=== PATIENT | male | born 1970 | race Caucasian/White ===

== ENCOUNTER → 2019-08-31 15:16 | Outpatient (CLI) | payer BC, SELFPAY ==
--- NOTE | ~2019-08-31 | XR_ITS ---
XR foot RT 2V DATE: 08/31/2019 15:36 INDICATION: Right foot pain TECHNIQUE: AP and lateral views COMPARISON: None FINDINGS: There is moderate osteoarthritis at the first metatarsophalangeal joint. There is plantar calcaneal and minimal posterior calcaneal enthesopathy. No fracture or dislocation, periosteal reaction or bone destruction. IMPRESSION: Osteoarthritis at first metatarsophalangeal joint Calcaneal enthesopathy Reviewed, dictated and finalized at location B. RANCE INSTRUCTOR
== END ==
PROVIDERS: PCP Family Medicine; Visit Provider Physician Assistant
DX: M79.671 Pain in right foot (principal); M19.071 Primary osteoarthritis, right ankle and foot; M77.9 Enthesopathy, unspecified
CPT/HCPCS: 73620

== ENCOUNTER 2019-09-14 11:18 | Outpatient (CLI) | payer BC, SELFPAY ==
[2019-09-14 11:55] LABS: CRP 0.8 mg/dL (<1.0); Uric Acid 7.7 mg/dL (3.5-8.5)
[2019-09-14 12:01] LABS: Rheumatoid Factor < 8.6 IU/ML (<12)
[2019-09-14 12:51] LABS: Erythrocyte Sedimentation Rate 27 mm/hr (0-20)
[2019-09-16 12:49] LABS: HLA B27 Positive (Negative)
[2019-09-16 21:17] LABS: Anti Nuclear Antibody Pattern Nuclear, Speckled; Anti Nuclear Antibody Titer 1:40 (Negative)
== END 2019-09-14 11:19 | disposition home or self-care (01) ==
PROVIDERS: PCP Family Medicine; Visit Provider Podiatrist Foot & Ankle Surgery
DX: M10.9 Gout, unspecified (principal)
CPT/HCPCS: 36415; 84550; 85652; 86038; 86039; 86140; 86430; 86812

== ENCOUNTER 2019-09-23 06:43 | Outpatient (CLI) | payer BC, SELFPAY ==
--- NOTE | ~2019-09-23 | MR_ITS ---
EXAMINATION: MR ankle RT wo con DATE: 09/23/2019 07:37 INDICATION: Insertional calcific tendinitis of right Achilles tendon. TECHNIQUE: Magnetic resonance imaging (MRI) of the right ankle was performed without intravenous cont rast. Sequences included sagittal PD-weighted FS FSE, sagittal PD-weighted FSE, coronal PD-weighted F S FSE, coronal PD-weighted FSE, axial PD-weighted FS FSE, and axial PD-weighted FSE. COMPARISON: Right foot radiographs 08/31/2019 FINDINGS: Medial ankle ligaments: There are changes of prior sprain of superficial component of the deltoid ligament characterized by t hickening and increased signal intensity. The deep component of the deltoid ligament is normal. Lateral ankle ligaments: There are changes of prior sprains of anterior talofibular ligament, calcaneofibular ligament, and an terior tibiofibular ligament characterized by thickening and increased signal intensity. Posterior ta lofibular ligament and posterior tibiofibular ligaments are normal. Tendons: The peroneal tendons and anterior and medial ankle tendons are normal. There is a partial tear of Ach illes tendon at its distal attachment where there is bone marrow edema and overlying subcutaneous tomas ma. There is a small enthesophyte at the calcaneal attachment. Plantar fascia: There is thickening of central band of plantar fascia, consistent with fasciitis. There is an entheso phyte at the calcaneal attachment. Bones/other: Bone alignment is normal. No fracture. There are tiny osteophytes at talonavicular joint. Talar dome is normal. Fluid: There is no joint effusion. IMPRESSION: 1. Partial tear of Achilles tendon at its distal attachment. 2. Plantar fasciitis. Reviewed, dictated and finalized at location A. AT CONTROL
== END 2019-09-23 06:44 | disposition home or self-care (01) ==
PROVIDERS: PCP Family Medicine; Visit Provider Podiatrist Foot & Ankle Surgery
DX: M76.61 Achilles tendinitis, right leg (principal); M72.2 Plantar fascial fibromatosis
CPT/HCPCS: 73721

== ENCOUNTER → 2021-10-19 06:56 | Outpatient (CLI) | payer BC, SELFPAY ==
--- NOTE | ~2021-10-19 | MR_ITS ---
EXAMINATION: MR ankle LT wo con DATE: 10/19/2021 07:29 INDICATION: Achilles tendinitis with left ankle pain TECHNIQUE: Magnetic resonance imaging (MRI) of the left ankle was performed without intravenous contr ast. Sequences included sagittal, coronal, and axial proton-density weighted fast spin echo without a nd with fat saturation. COMPARISON: None. FINDINGS: Medial ankle ligaments: Deep and superficial deltoid ligaments as well as the spring ligament are normal. Lateral ankle ligaments: The anterior and posterior inferior tibiofibular ligaments are normal. The anterior talofibular, calc aneofibular and posterior talofibular ligaments are normal. Tendons: Focal Achilles tendinopathy with thickening and increased signal along the lateral side of the diet counselor ior margin of the distalmost Achilles tendon. Associated Achilles bursitis with increased fluid signa l within the bursa immediately overlying the region of tendinopathy. The peroneus longus and brevis t endons are normal. The tibialis anterior and extensor hallucis longus and extensor digitorum longus t endons are normal. The tibialis posterior, flexor digitorum longus and flexor hallucis longus tendons are normal. Plantar fascia: Small plantar calcaneal spur at the origin of the otherwise normal plantar aponeurosis. Bones/other: Bone alignment is normal. No fracture or pathologic marrow replacing process. There is an erosion at the medial margin of the talar dome along the anterior footplate of the deep deltoid ligament. No oth er erosions identified. Mild osteoarthritis at the tibiotalar and talonavicular joints. Fluid: Physiologic amount fluid in the joint spaces. Mild subcutaneous edema overlying the medial malleolus and to lesser degree overlying the lateral malleolus and Achilles tendon. IMPRESSION: 1. Erosion at the medial talus underlying the footplate of the deep deltoid ligament which may be rel ated to provided history of gout. 2. Mild Achilles bursitis overlying a focal region of prominent tendinopathy. The relatively localize d regions tendinopathy suggests this could also be related to tophaceous gout. Reviewed, dictated and finalized at location A. IMPRESSION: 1. Erosion at the medial talus underlying the footplate of the deep deltoid lig ament which may be related to provided history of gout. 2. Mild Achilles bursitis overlying a focal region of prominent tendinopathy. T he relatively localized regions tendinopathy suggests this could also be relate d to tophaceous gout.
== END ==
PROVIDERS: Visit Provider Podiatrist Foot & Ankle Surgery
DX: M76.62 Achilles tendinitis, left leg (principal)
CPT/HCPCS: 73721

== ENCOUNTER 2021-11-26 02:13 | Day surgery (SDC) | payer BC, SELFPAY ==
[2021-11-16 09:12] VITALS: BMI 45.1
--- NOTE | 2021-11-16 09:19 | PC.NURSE ---
Report to the Outpatient Waiting Room, entrance under the green pavilion located off [facility], at time 0600 on date 11/26/21. OR Time: 0730. - You and your visitor will be asked a series of questions to screen for COVID 19 for your protection. - A mask is required within the hospital. One visitor will be allowed to accompany the patient into the hospital. Patients visitor will be instructed to remain with patient at all times or leave the building. We will allow the visitor to come back to the postoperative area when patient is ready. Preoperative COVID Testing Requirements: COVID TEST 11/23 AT 0830 No COVID Test needed if: (proof is required; if not received patient will have Rapid Test prior to entry) - Patient has received COVID Vaccine at least 14 days prior to procedure date or - Patient has positive COVID test result within last 90 days of surgery date. COVID Test needed if above criteria is not met If not COVID vaccinated a COVID test must be conducted within 72 hours of surgery and patient is asked to isolate self from time of testing until procedure. You will go to the [facility] for your COVID testing. The [facility] site is located at the corner of [address] from [facility]. You will only be called if COVID results are positive and your surgeon may reschedule your elective surgery date. Patients may have clear liquids (water, carbonated beverages, clear teas, apple juice) until 3 hours prior to surgery with a maximum of 20 ounces. - No food from midnight until time of surgery Take the following medications with a SIP of water the morning of surgery: NONE Medications to discontinue per physician: N/A Date to take last dose: N/A Please no make-up, nail pashto, hairspray, perfume, deodorant, or body powder the day of surgery. No jewelry (including any body piercings) or valuables the day of surgery, leave them at home. Please take a shower or bath the night before, or the morning of, surgery with an antibacterial soap. Wear comfortable, loose fitting clothing. - Jewelry must be removed prior to entering the operating room. Rings and piercings that are not removed may be cut off. - The hospital will not accept responsibility for valuables. - Please leave all valuables, including medications, at home the day of surgery. If you are going home after surgery, a licensed armored car driver must drive you home. - NO public transportation without another adult. - We recommend that an adult stay with you for 24 hours following discharge. - We also recommend that you do not drive, make important decision, drink alcoholic beverages, or take any drugs that were not prescribed by your health care provider for at least 24 hours after your discharge time. Follow any additional instructions given to you from your surgeon. Telephone instructions given to JUDY CHA and asked if any additional questions and then verbalized understanding. Patient advised to call surgeon office or pre surgery nurse liaison [phone] if any additional questions.
--- NOTE | 2021-11-26 06:49 | WPDANESEPPF ---
Anes - Initial Pre Proc Eval Procedure: Operation Date: 11/26/21 07:30 Proposed Procedures p Excision of Right Groin Chronic Abscess Cavity - Maribeth Brumfield MD Date/Time: 11/26/21 06:49 Surgeon: Maribeth Brumfield MD Pre Op Diagnosis: rt groin groin folliculitis Patient Data Age: 51 Gender: M Height: 1.68 m Weight: 134 kg Allergies Allergy/AdvReac Type Severity Reaction Status Date / Time No Known Allergies Allergy Verified 11/26/21 06:11 Home Medications Medication Instructions Recorded Confirmed Type No Home Medications 11/16/21 11/26/21 History Patient hx anesthesia problems: none Family hx anesthesia problems: none Results Review: All pre-operative results and documents have been reviewed as part of the pre-operative evaluation. [facility] Past Medical History Medical History Cough H/O: gout Intertrigo Pain of right heel Rib pain Social History Social History Smoking packs per day: 0.25 Smoking cigarettes per day: 5.0 Years smoked: 4 Smoking pack-years: 1.00 Smoking status: Former smoker Tobacco type: cigarettes Second hand tobacco smoke exposure: No Smoking end date: 07/28/96 Alcohol intake: current Drinks per week: 1 Substance use: never Substance use type: does not use Living arrangements: with family Gender identity (if verbalized by the patient): Male Sexual Orientation (if Verbalized by the Patient): Straight or Heterosexual Spiritual care concerns: No Anes - Eval Final PreProcedure Day of Procedure 11/26/21 06:49 Patient weight: morbidly obese Heart: regular rate and rhythm Lungs: clear to auscultation Airway: Mallampati scale class II Neurological: alert and oriented Last oral intake: >/= 8 hours ASA classification: III Emergent: no Anesthetic plan: proceed Anesthesia type and monitoring: general GIVS and standard monitoring Results Review: All pre-operative results and documents have been reviewed as part of the pre-operative evaluation. Informed Consent: The patient's anesthetic plan and its attendant risks and benefits were discussed with the patient/family/POA. Questions were solicited and answers provided to the satisfaction of the patient/family/POA.
[2021-11-26] MEDS: LACTATED RINGERS 1,000 ML 30 ML IV CONT (07:01)
[2021-11-26 07:05] VITALS: BP 153/87; PULSE 75; RESP 18; TEMP 35.9; O2SAT 99
[2021-11-26] MEDS: ceFAZolin 3 GM/D5W 100 ML 100 ML IVPB (07:14)
--- NOTE | 2021-11-26 07:15 | WPDHPUPDATE1 ---
History and Physical Update Update Date/Time: 11/26/21 07:15 History and Physical has been reviewed, including an updated exam of the patient. There are NO changes in the patient's condition. Risks, benefits, and alternatives have been discussed and questions answered. Patient agrees to proceed with procedure.
[2021-11-26 07:48] VITALS: BP 92/49; PULSE 76; RESP 15; O2SAT 92
--- NOTE | 2021-11-26 08:11 | W.PM.PROC2 ---
Procedure Note - Detailed Date of Procedure 11/26/21 Pre-op Diagnosis rt groin groin chronic abscess Post-op Diagnosis Same Procedure Performed Excisional biopsy right groin chronic abscess cavity Surgeon Maribeth Brumfield MD Anesthesia MAC and Local Indications 51-year-old male with chronic right groin abscess over the last year. The area continually heals and gets reinfected. Findings Chronic abscess with cavity Description of Procedure The patient was taken to the operating room and placed in the supine position. After adequate induction of mac anesthesia, the patient was prepped and draped in the normal sterile fashion. A time-out was then done to verify the patient's identity, as well as the procedure being performed. I then made an elliptical incision encompassing the abscess in the right groin. This was carried down through the dermis and into the subcutaneous tissue. A granulated cavity was noted to connect to the overlying skin. This area was completely excised and will be sent to pathology for further. Of note, no obvious infection was noted at this time. No other pathology was noted in this area. I then copiously irrigated the subcutaneous tissue. The subcutaneous tissue was closed with 3-0 Vicryl suture. The skin was closed with 4-0 Monocryl subcuticular suture. Dermabond was then placed on the wound. The patient tolerated the procedure and will be sent to the recovery room in stable condition. Estimated Blood Loss 5 Drains No Packing No Pathology Yes Complications No immediate complications Condition Stable Disposition PACU
[2021-11-26 08:18] VITALS: BP 134/66; PULSE 74
[2021-11-26 08:30] VITALS: BP 136/79; PULSE 63
== END 2021-11-26 08:42 | disposition home or self-care (01) ==
PROVIDERS: PCP Family Medicine; Visit Provider Surgery
PROC: (CPT 11406; principal; 2021-11-26 07:30)
DX: L02.214 Cutaneous abscess of groin (principal); L73.9 Follicular disorder, unspecified; G47.33 Obstructive sleep apnea (adult) (pediatric); Z87.891 Personal history of nicotine dependence; E66.01 Morbid (severe) obesity due to excess calories; Z68.42 Body mass index [BMI] 45.0-49.9, adult
CPT/HCPCS: 11406; 12032; 88304; A9270; J0690; J2250; J2270; J2704; J7120

== ENCOUNTER 2024-05-19 18:00 | Emergency (ER) | payer BC, SELFPAY ==
[2024-05-19 18:00] VITALS: BP 154/111; PULSE 81; RESP 20; TEMP 36.8; O2SAT 97
--- NOTE | 2024-05-19 18:16 | ED.WOUNDLAC ---
HPI - Wound/Laceration General Chief Complaint: Wound/Laceration Stated Complaint: RT Arm Time Seen by Provider: 05/19/24 18:16 Source: patient and RN notes reviewed Mode of arrival: ambulatory Limitations: no limitations History of Present Illness HPI narrative: 53 year old male presents with concern for lateration to his right upper arm. 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 he is up to date on his tetanus vaccination. Related Data Allergies Allergy/AdvReac Type Severity Reaction Status Date / Time No Known Allergies Allergy Verified 05/19/24 18:15 Review of Systems Review of Systems: CONSTITUTIONAL: Denies malaise, chills, sweats, or fever. SKIN: Reports laceration to the right upper arm MUSCULOSKELETAL: Denies muscle skeletal pain NEUROLOGIC: Denies numbness, weakness All systems reviewed & are unremarkable except as noted in HPI and below PMFSH Past Medical History Medical History Cough H/O: gout Intertrigo Pain of right heel Rib pain Surgical History Surgical History H/O excision of mass exc right groin chronic abscess cavity 11/26/21 Social History Social History Smoking packs per day: 0.25 Smoking cigarettes per day: 5.0 Years smoked: 4 Smoking pack-years: 1.00 Smoking status: Former smoker Tobacco type: cigarettes Second hand tobacco smoke exposure: No Smoking end date: 07/28/96 Alcohol intake: current Drinks per week: 1 Substance use: never Substance use type: does not use Living arrangements: with family Occupation/Education: occupation Gender identity (if verbalized by the patient): Male Sexual Orientation (if Verbalized by the Patient): Straight or Heterosexual Spiritual care concerns: No Comments At time of signature, agree with nursing past medical, surgical, social and family history. There is no relevant family history pertinent to the presenting complaint Exam Narrative: GENERAL: Well-appearing, well-nourished, and in no acute distress. HEAD: Normocephalic, atraumatic. EYES: PERRLA, conjunctivae clear ENT: Mucous membranes moist. NECK: Supple. No lymphadenopathy CHEST: Clear to auscultation. No respiratory distress. HEART: Regular rate and rhythm. SKIN: Warm, dry. 4cm linear laceration through the dermis, not involving subq tissue noted to the right upper arm NEURO: Alert and oriented x3. PSYCH: Normal mood and affect Course Course Emergency Course: Patient is aware of diagnosis, understands and agrees to treatment plan. Anticipatory guidance given. Patient agrees to follow-up as directed and is aware of reasons to seek care at the emergency department. Portions of this record may have been created with voice recognition software Level of Care: Express Care Visit Vital Signs Vital signs: Reviewed. Procedures Laceration Laceration 1: Date: 05/19/24 Time: 18:43 Site: upper extremity Side (If applicable): right Size (cm): 4 Description: linear Depth: simple, single layer Pre-repair: wound explored and irrigated extensively ====== Skin Level ====== Skin layer closed with: dermabond and steri strips ====== Subcutaneous Layer ====== ====== Muscle Layer ====== ====== Tendon Layer ====== MDM - Wound/Laceration MDM Narrative Medical decision making narrative: Wound explored for foreign body and copious irrigation provided with no evidence of FB. Discussed the potential of retained foreign body with the patient and signs/symptoms that should prompt the patient to immediately go to the ED for reevaluation. There was no evidence of tendon or nerve lacerations. Anticipatory guidance was provided. Tetanus prophylaxis was given Differential Diagnosis Differen
[2024-05-19] MEDS: TETANUS,DIPHTHERIA,AC PERTUSSIS ADULT (0.5 ML) BOOSTRIX IM (18:52)
== END 2024-05-19 18:54 | disposition home or self-care (01) ==
PROVIDERS: Emergency Provider Nurse Practitioner; PCP Family Medicine
DX: S41.111A Laceration without foreign body of right upper arm, initial encounter (principal); Z23 Encounter for immunization; W45.8XXA Other foreign body or object entering through skin, initial encounter
CPT/HCPCS: 12002; 90471; 90715; 99212; G0463

== ENCOUNTER 2024-05-25 01:17 | Emergency (ER) | payer BC, SELFPAY ==
--- NOTE | ~2024-05-25 | XR_ITS ---
Left ankle Technique: AP, oblique, and lateral views were obtained. Clinical History: Pain Findings: No acute fracture or dislocation is seen. Osseous alignment is anatomic. Ankle mortise and other visualized joint spaces are preserved. Mild diffuse soft tissue edema noted. Impression: No fracture or dislocation. Mild diffuse soft tissue edema. Reviewed, dictated and finalized at [facility]. Impression: No fracture or dislocation. Mild diffuse soft tissue edema.
[2024-05-25 01:24] VITALS: BP 145/78; PULSE 105; RESP 18; TEMP 36.2; O2SAT 97
--- NOTE | 2024-05-25 05:02 | ED_ITS ---
HPI - General Adult General Chief complaint: Extremity Injury, Lower Stated complaint: left foot injury 2-3 days ago Time Seen by Provider: 05/25/24 05:01 History of Present Illness HPI narrative: Patient 53-year-old gentleman who presents emergency department with chief complaint of foot injury. Patient reports that 2 days ago he had a piece of plaster fall on the dorsum of his left foot. Patient reports he has been having increasing in pain since then reports that he has tried to take his medications for gout without relief. Patient denies fever denies redness denies laceration Related Data Allergies Allergy/AdvReac Type Severity Reaction Status Date / Time No Known Allergies Allergy Verified 05/25/24 01:17 Review of Systems Review of Systems: A 10 system review of systems was completed on the patient and is negative except for what is stated in the HPI. Nursing and ancillary documentation was reviewed. [facility] Past Medical History Medical History Cough H/O: gout Intertrigo Pain of right heel Rib pain Surgical History Surgical History H/O excision of mass exc right groin chronic abscess cavity 11/26/21 Social History Social History Smoking packs per day: 0.25 Smoking cigarettes per day: 5.0 Years smoked: 4 Smoking pack-years: 1.00 Smoking status: Former smoker Tobacco type: cigarettes Second hand tobacco smoke exposure: No Smoking end date: 07/28/96 Alcohol intake: current Drinks per week: 1 Substance use: never Substance use type: does not use Living arrangements: with family Occupation/Education: occupation Gender identity (if verbalized by the patient): Male Sexual Orientation (if Verbalized by the Patient): Straight or Heterosexual Spiritual care concerns: No Exam Narrative: GENERAL: Well-appearing, well-nourished, and in no acute distress. HEAD: Normocephalic, atraumatic. EYES: PERRLA and EOMI. ENT: Nares clear, no rhinorrhea or epistaxis. Mucous membranes moist. NECK: Supple. CHEST: Clear to auscultation. No respiratory distress. HEART: Regular rate and rhythm. No murmur heard. Normal peripheral pulses. ABDOMEN: Soft, nontender, nondistended, normal active bowel sounds. EXTREMITIES: Normal range of motion tenderness to palpation the dorsum of the left foot, no deformity. No edema. SKIN: Warm, dry, no rash. NEURO: No focal deficits. Alert and oriented x3. PSYCH: Normal mood and affect. Course Vital Signs Vital signs: Vital Signs Temperature 36.2 C L 05/25/24 01:24 Pulse Rate 105 H 05/25/24 01:24 Respiratory Rate 18 05/25/24 01:24 Blood Pressure 145/78 H 05/25/24 01:24 Pulse Oximetry 97 05/25/24 01:24 Temperature 36.2 C L 05/25/24 01:24 Pulse Rate 105 H 05/25/24 01:24 Respiratory Rate 18 05/25/24 01:24 Blood Pressure 145/78 H 05/25/24 01:24 Pulse Oximetry 97 05/25/24 01:24 Medical Decision Making MDM Narrative Medical decision making narrative: Differential diagnosis includes fracture, contusion Plain film x-ray showed no evidence of displaced fracture. Patient was placed in a postop shoe given a shot of Toradol patient will be placed on anti-inflammatory will be instructed to rest elevate nice Vital Signs Vital Signs: Vital Signs Temperature 36.2 C L 05/25/24 01:24 Pulse Rate 105 H 05/25/24 01:24 Respiratory Rate 18 05/25/24 01:24 Blood Pressure 145/78 H 05/25/24 01:24 Pulse Oximetry 97 05/25/24 01:24 Temperature 36.2 C L 05/25/24 01:24 Pulse Rate 105 H 05/25/24 01:24 Respiratory Rate 18 05/25/24 01:24 Blood Pressure 145/78 H 05/25/24 01:24 Pulse Oximetry 97 05/25/24 01:24 Discharge Plan Discharge Clinical Impression: Contusion of ankle or foot, left Patient Disposition: Home, Self-Care Condition: Stable Instructions: Antibiotic Form, Foot Contusion (ED), Post Surgical Shoe (ED) Prescriptions: New diclofenac potassium 50 mg tablet 50 mg PO TID PRN (Reason: pain) Qty: 21 0RF Follow-up/Referrals: Reji Moncada MD [Primary Care Provider] - Time of Disposition: 05:04
[2024-05-25 05:10] VITALS: BP 142/84; PULSE 99; RESP 18; O2SAT 100
[2024-05-25] MEDS: HYDROcodone/acetaminophen (*CRX) 5-325 MG TABLET 1 TAB PO (05:11)
[2024-05-25] MEDS: KETOROLAC 30 MG/ML VIAL (*BKC) IM (05:11)
== END 2024-05-25 05:28 | disposition home or self-care (01) ==
LOC: ANHED 05:11
PROVIDERS: Emergency Provider Emergency Medicine; PCP Family Medicine
DX: S90.32XA Contusion of left foot, initial encounter (principal); S90.02XA Contusion of left ankle, initial encounter; M10.9 Gout, unspecified; Z87.891 Personal history of nicotine dependence; W20.8XXA Other cause of strike by thrown, projected or falling object, initial encounter
CPT/HCPCS: 73610; 73630; 96372; 99283; A9270; J1885

== ENCOUNTER 2024-06-17 11:09 | Outpatient (CLI) | payer BC, SELFPAY ==
--- NOTE | ~2024-06-17 | XR_ITS ---
EXAMINATION: XR foot LT min 3V DATE: 06/17/2024 11:20 INDICATION: Left foot pain. TECHNIQUE: 4 views of left foot were obtained. COMPARISON: Left foot radiographs 05/25/2024 FINDINGS: Alignment is normal. No fracture. There is mild osteoarthritis of first metatarsophalangeal joint and some of the midfoot joints. There are enthesophytes at the posterior and plantar aspects o f calcaneal tuberosity. IMPRESSION: 1. Mild polyarticular osteoarthritis. Reviewed, dictated and finalized at location A. CE TIER
== END 2024-06-17 11:10 | disposition home or self-care (01) ==
PROVIDERS: PCP Family Medicine; Visit Provider Family Medicine
DX: M19.072 Primary osteoarthritis, left ankle and foot (principal)
CPT/HCPCS: 73630